=== PATIENT | male | born 1960 | race Caucasian/White ===

== ENCOUNTER 2016-06-24 15:22 | Emergency (ER) | payer OTHER | END 2016-06-24 18:22 | disposition home or self-care (01) | DX: S39.92XA Unspecified injury of lower back, initial encounter (principal); W01.0XXA Fall on same level from slipping, tripping and stumbling without subsequent striking against object, initial encounter; Y92.019 Unspecified place in single-family (private) house as the place of occurrence of the external cause; E78.00 Pure hypercholesterolemia, unspecified; G47.30 Sleep apnea, unspecified; G89.29 Other chronic pain; F17.200 Nicotine dependence, unspecified, uncomplicated ==

== ENCOUNTER 2016-06-24 18:18 | Outpatient (CLI) | payer OTHER | END 2016-06-24 18:19 | disposition home or self-care (01) | DX: Z51.81 Encounter for therapeutic drug level monitoring (principal) ==

== ENCOUNTER 2017-09-10 11:43 | Outpatient (CLI) | payer MEDICARE ==
[2017-09-10 17:39] LABS: BASOPHILS # (AUTO) 0.1 10^3/uL (0.0-0.1); BASOPHILS % (AUTO) 0.8 %; EOSINOPHILS # (AUTO) 0.4 10^3/uL (0.0-0.7); HGB - HEMOGLOBIN 15.2 g/dL (14.0-18.0); LYMPHOCYTES # (AUTO) 2.7 10^3/uL (1.5-3.5); LYMPHOCYTES % (AUTO) 33.5 %; MEAN CORPUSCULAR HEMOGLOBIN 29.9 pg (27.0-31.0); MEAN CORPUSCULAR HGB CONC 33.2 g/dL (32.0-36.0); MEAN CORPUSCULAR VOLUME 90.3 fL (80.0-94.0); MEAN PLATELET VOLUME 9.8 fL (7.4-11.4); MONOCYTES # (AUTO) 0.7 10^3/uL (0.0-1.0); MONOCYTES % (AUTO) 9.4 %; NEUTROPHILS # (AUTO) 4.1 10^3/uL (1.5-6.6); NEUTROPHILS % (AUTO) 51.3 %; PLT - PLATELET COUNT 285 10^3/uL (130-450); RED BLOOD COUNT 5.08 10^6/uL (4.70-6.10); RED CELL DISTRIBUTION WIDTH 13.1 % (12.0-15.0); WHITE BLOOD COUNT 7.9 x10^3/uL (4.8-10.8)
[2017-09-10 18:18] LABS: ALBUMIN 3.9 g/dL (3.2-5.5); ALBUMIN/GLOBULIN RATIO 1.2 (1.0-2.2); ALKALINE PHOSPHATASE 48 IU/L (42-121); ALT ALANINE AMINOTRANSFERASE 13 IU/L (10-60); AST ASPARTATE AMINOTRANSFERASE 18 IU/L (10-42); BILIRUBIN,TOTAL 1.1 mg/dL (0.2-1.0); BUN - BLOOD UREA NITROGEN 9 mg/dL (6-20); CALCIUM 9.3 mg/dL (8.5-10.3); CARBON DIOXIDE - CO2 25 mmol/L (21-32); CHLORIDE 106 mmol/L (101-111); CHOLESTEROL 192 mg/dL; CREATININE 0.9 mg/dL (0.6-1.2); GFR - MDRD 88 (>89); GLUCOSE 101 mg/dL (70-100); HDL CHOLESTEROL 32 mg/dL; LDL CHOLESTEROL,CALCULATED 102 mg/dL; LDL/HDL RATIO 3.2 (<3.6); SODIUM 137 mmol/L (135-145); TOTAL PROTEIN 7.2 g/dL (6.7-8.2); VLDL CHOLESTEROL 58 mg/dL
== END 2017-09-10 11:44 | disposition home or self-care (01) ==
LOC: LAB.F 11:43
PROVIDERS: ATTEND Physician Assistant Medical
DX: Z00.00 Encounter for general adult medical examination without abnormal findings (principal); Z79.899 Other long term (current) drug therapy; E55.9 Vitamin D deficiency, unspecified
CPT/HCPCS: 36415; 80053; 80061; 82306; 83721; 85025

== ENCOUNTER 2017-10-22 08:00 | Outpatient (CLI) | payer MEDICARE | END 2017-10-22 08:01 | disposition home or self-care (01) | LOC: LAB.F 08:00 | PROVIDERS: ATTEND Physician Assistant Medical | DX: Z12.5 Encounter for screening for malignant neoplasm of prostate (principal) | CPT/HCPCS: 36415; G0103; 84153 ==

== ENCOUNTER 2018-04-09 13:26 | Emergency (ER) | payer MEDICARE ==
[2018-04-09] MEDS ORDERED: ALPRAZolam 0.25 MG TABLET PO STA (15:13)
--- NOTE | 2018-04-09 15:28 | ED Physician Documentation ---
PD HPI MHE - Stated complaint Stated Complaint: MED REFILL/PANIC ATTACK - Chief complaint Chief Complaint: Resp - History obtained from History obtained from: Patient - History of Present Illness Primary symptom: Anxiety, Out of meds, Other (insomnia, also increased abd cramping from IBS which occurs with stress in the past.) Timing - onset: How many weeks ago (had run out of Xanax couple weeks ago, and has appt with new PCP in [place] next week, but anxiety increasing and he would like Rx to bridge until he can see new provider. He quit prior provider.) Contributing factors: Out of meds. No: Substance abuse - ETOH, Substance abuse - drugs Similar symptoms before: Diagnosis (anxiety and depression) Recently seen: Not recently seen Review of Systems Constitutional: reports: Chills. denies: Fever Nose: denies: Rhinorrhea / runny nose, Congestion Throat: denies: Sore throat Respiratory: denies: Cough GI: denies: Nausea, Vomiting, Diarrhea Skin: reports: Rash (facial rash forehead and cheeks, recurrent for over 4 years without clear Dx in the past, per patient.) PD PAST MEDICAL HISTORY - Past Medical History Cardiovascular: High cholesterol Respiratory: Sleep apnea, CPAP use Psych: Depression, Anxiety, ADD/ADHD Musculoskeletal: Chronic back pain - Past Surgical History Past Surgical History: Yes HEENT: Tonsil/Adenoidectomy - Present Medications Home Medications: Ambulatory Orders Medication Instructions Recorded Confirmed Cholecalciferol (Vitamin D3) 6,000 unit PO DAILY 04/04/13 02/17/15 [Vitamin D] EPINEPHrine [Epipen] 0.1 mg SQ 08/01/14 02/17/15 Minocycline HCl [Minocin] 50 mg PO DAILY #30 capsule 02/17/15 Alprazolam [Xanax] 1 mg PO BID #30 tablet 04/09/18 Metronidazole [Metrogel] 1 applic TP BID #1 tube 04/09/18 - Allergies Allergies/Adverse Reactions: Allergies Allergy/AdvReac Type Severity Reaction Status Date / Time amoxicillin [Amoxicillin] Allergy Rash Verified 12/03/12 16:47 amphetamine [From Adderall] Allergy Anxiety Verified 04/09/18 13:37 cefaclor [From Ceclor] Allergy joint pain Verified 12/03/12 16:47 clavulanic acid Allergy Edema Verified 04/09/18 13:37 [From Augmentin] cortisone [Cortisone] Allergy Rash Verified 12/03/12 16:47 cyclobenzaprine Allergy Cramps Verified 04/09/18 13:37 dextroamphetamine Allergy Anxiety Verified 04/09/18 13:37 [From Adderall] gluten Allergy gi Verified 04/04/13 19:53 guaifenesin Allergy Anxiety Verified 04/09/18 13:37 nortriptyline Allergy Rash Verified 04/09/18 13:37 omeprazole [From Prilosec] Allergy Anxiety Verified 04/09/18 13:37 peanut Allergy Cramps Verified 06/24/16 15:33 salicylates Allergy Unknown Verified 04/09/18 13:37 tadalafil Allergy Unknown Verified 04/09/18 13:37 verapamil Allergy Anxiety Verified 04/09/18 13:37 whey Allergy gi Uncoded 04/04/13 19:53 - Social History Does the pt smoke?: Yes Smoking Status: Current every day smoker Does the pt drink ETOH?: No Does the pt have substance abuse?: Yes - Immunizations Immunizations are current?: Yes Immunizations: TDAP current <10years - POLST Patient has POLST: No PD ED PE NORMAL - Vitals Vital signs reviewed: Yes - General General: Alert and oriented X 3, No acute distress, Well developed/nourished - Neck Neck: Supple, no meningeal sign, No adenopathy - Cardiac Cardiac: RRR, No murmur - Respiratory Respiratory: Clear bilaterally - Derm Derm: Normal color, Warm and dry, Other (forehead and cheeks with red blotchy rash without crusting nor weeping. Looks possibly rosacea.) - Psych Psych: Normal mood. No: Normal affect (somewhat anxious but pleasant and interacts well. ) Results - Vitals Vitals: Vital Signs - 24 hr 04/09/18 04/09/18 13:29 15:36 Temperature 36.8 C Heart Rate 108 H 86 Respiratory 22 14 Rate Blood Pressure 168/94 H 123/79 O2 Saturation 96 98 Oxygen O2 Source Room air PD MEDICAL DECISION MAKING - ED course Complexity details: considered differential (has anxiety and is out of meds, with appt with PCP in a week. new provider in [place], so he had not anticipated taking as long to get first appt and ran out of Xanax couple weeks ago and is very anxious. Also having some flare of IBS, which he says is likely from the anxiety. Also has facial rash flaring up that has been recurring for years and not gotten clear dx despite several dermatologists and having used multiple creams and abx. Does not recognize Metrogel as one he has had though. ), d/w patient Departure - Departure Disposition: 01 Home, Self Care Clinical Impression: Anxiety, Facial rash Condition: Stable Record reviewed to determine appropriate education?: Yes Instructions: Anxiety Disorder Prescriptions: Alprazolam [Xanax] 1 mg PO BID #30 tablet Metronidazole [Metrogel] 1 applic TP BID #1 tube Comments: Continue current medications. I did write short-term prescription for your Xanax into the can see your new primary care next week. For the facial rash you could try MetroGel in the interim to see if that improves on it. Recheck with your primary care next week. Return if needed. Discharge Date/Time: 04/09/18 15:38
[2018-04-09 15:38] VITALS: BP 123/79
== END 2018-04-09 15:38 | disposition home or self-care (01) ==
LOC: ED 13:26
DX: F41.9 Anxiety disorder, unspecified (principal); R21 Rash and other nonspecific skin eruption; Z76.0 Encounter for issue of repeat prescription; E78.00 Pure hypercholesterolemia, unspecified; F17.200 Nicotine dependence, unspecified, uncomplicated
CPT/HCPCS: 99283; A9270

== ENCOUNTER 2019-08-10 09:32 | Emergency (ER) | payer OTHER, MEDICARE ==
[2019-08-10 09:48] VITALS: BP 118/88
--- NOTE | 2019-08-10 10:15 | ED Physician Documentation ---
PD HPI MALE - Stated complaint Stated Complaint: MALE - Chief complaint Chief Complaint: Wound - History obtained from History obtained from: Patient - History of Present Illness Timing - onset: How many days ago (6) Timing - duration: Days (6) Timing - details: Gradual onset, Still present Associated symptoms: Other (lump in the rectum is very painful much better today than yesterday .) Similar symptoms before: Has not had sx before Recently seen: Not recently seen - Additional information Additional information: 58-year-old male who is had some problem with psoriatic arthritis has developed a painful lump in his rectum that was severe and he is finally made it to the emergency department. He states that if he were to have come yesterday he would have had to of laid prone in the car seat in order to get to the emergency department. Today he is able to stand and walk. He noticed this lump and pain 6 days ago he has been putting some cortisone cream on it. He also notes some redness to his perineum but seems to be worse if he eats too much salt. He also has some urinary hesitancy and poor stream that is slowly worsening. Review of Systems Constitutional: denies: Fever Eyes: denies: Decreased vision Ears: denies: Ear pain Nose: denies: Congestion Respiratory: denies: Cough GI: reports: Other (lump in rectum). denies: Vomiting PD PAST MEDICAL HISTORY - Past Medical History Cardiovascular: High cholesterol Respiratory: Sleep apnea, CPAP use Psych: Depression, Anxiety, ADD/ADHD Musculoskeletal: Chronic back pain - Past Surgical History Past Surgical History: Yes HEENT: Tonsil/Adenoidectomy - Present Medications Home Medications: Ambulatory Orders Medication Instructions Recorded Confirmed Cholecalciferol (Vitamin D3) 6,000 unit PO DAILY 04/04/13 02/17/15 [Vitamin D] EPINEPHrine [Epipen] 0.1 mg SQ 08/01/14 02/17/15 Minocycline HCl [Minocin] 50 mg PO DAILY #30 capsule 02/17/15 Alprazolam [Xanax] 1 mg PO BID #30 tablet 04/09/18 Metronidazole [Metrogel] 1 applic TP BID #1 tube 04/09/18 Fluconazole [Diflucan] 150 mg PO ONCE #2 tablet 08/10/19 - Allergies Allergies/Adverse Reactions: Allergies Allergy/AdvReac Type Severity Reaction Status Date / Time amoxicillin [Amoxicillin] Allergy Rash Verified 12/03/12 16:47 amphetamine [From Adderall] Allergy Anxiety Verified 04/09/18 13:37 cefaclor [From Ceclor] Allergy joint pain Verified 12/03/12 16:47 clavulanic acid Allergy Edema Verified 04/09/18 13:37 [From Augmentin] cyclobenzaprine Allergy Cramps Verified 04/09/18 13:37 dextroamphetamine Allergy Anxiety Verified 04/09/18 13:37 [From Adderall] gluten Allergy gi Verified 04/04/13 19:53 guaifenesin Allergy Anxiety Verified 04/09/18 13:37 nortriptyline Allergy Rash Verified 04/09/18 13:37 omeprazole [From Prilosec] Allergy Anxiety Verified 04/09/18 13:37 salicylates Allergy Unknown Verified 04/09/18 13:37 verapamil Allergy Anxiety Verified 04/09/18 13:37 whey Allergy gi Uncoded 04/04/13 19:53 - Social History Does the pt smoke?: Yes Smoking Status: Current every day smoker Does the pt drink ETOH?: No Does the pt have substance abuse?: Yes - Immunizations Immunizations are current?: Yes Immunizations: TDAP current <10years - POLST Patient has POLST: No PD ED PE NORMAL - Vitals Vital signs reviewed: Yes (hypertensive mild ) - General General: Alert and oriented X 3, No acute distress, Well developed/nourished - HEENT HEENT: Atraumatic, PERRL, EOMI, Ears normal - Neck Neck: Supple, no meningeal sign, No bony TTP - Male Male : Other (There is mild erythema to the skin of the thighs bilaterally along the intertriginous fold.) - Back Back: No CVA TTP, No spinal TTP, Other (There is a thrombosed hemorrhoid at 6 o'clock. This is tender and firm, mature. ) - Derm Derm: Normal color, Warm and dry, No rash - Extremities Extremities: No deformity, No edema Results - Vitals Vitals: Vital Signs - 24 hr 08/10/19 09:45 Temperature 36.8 C Heart Rate 82 Respiratory 18 Rate Blood Pressure 118/88 H O2 Saturation 98 Oxygen O2 Source Room air PD MEDICAL DECISION MAKING - ED course Complexity details: reviewed old records, considered differential, d/w patient ED course: 58-year-old male with a thrombosed external hemorrhoid has past the 72-hour stephanie and no specific therapy is provided in the emergency department. I have explained to the patient the natural history of thrombosed hemorrhoid with the expectation that his pain subsides over the next several days and the mass remains slowly resolving. I have encouraged him to continue use the cortisone cream and we will give him some Diflucan for what seems to be some yeast dermatitis. He is also having some complaints of a decreased urinary stream and I have referred him to the urologist for further evaluation. Departure - Departure Disposition: Home, Self Care Clinical Impression: Thrombosed external hemorrhoid, Yeast dermatitis Condition: Stable Instructions: Hemorrhoids Thrombosed, ED Candidiasis Cutaneous Follow-Up: FEROZ CHAMPION MD [Primary Care Provider] - Abel Soto MD [Provider Admit Priv/Credential] - Prescriptions: Fluconazole [Diflucan] 150 mg PO ONCE #2 tablet
== END 2019-08-10 10:34 | disposition home or self-care (01) ==
LOC: ED 09:32
DX: K64.5 Perianal venous thrombosis (principal); B37.2 Candidiasis of skin and nail; R39.198 Other difficulties with micturition; R39.11 Hesitancy of micturition; L40.50 Arthropathic psoriasis, unspecified; F17.200 Nicotine dependence, unspecified, uncomplicated
CPT/HCPCS: 99282; 99284

== ENCOUNTER 2022-10-24 07:00 | Outpatient (CLI) | payer MEDICARE ==
--- NOTE | 2022-10-25 13:20 | XRAY Report ---
PROCEDURE: Chest 2 View X-Ray INDICATIONS: HEMOPTYSIS TECHNIQUE: 2 views of the chest were acquired. COMPARISON: None. FINDINGS: Surgical changes and devices: None. Lungs and pleura: No pleural effusions or pneumothorax. Lungs are clear. Mediastinum: Mediastinal contours appear normal. Heart size is normal. Bones and chest wall: No suspicious bony lesions. Overlying soft tissues appear unremarkable. IMPRESSION: No acute cardiopulmonary process. Reviewed by: Frank Chew on 10/25/2022 1:19 PM PDT Approved by: Frank Chew on 10/25/2022 1:19 PM PDT Station ID: [id number]
== END 2022-10-24 23:59 | disposition home or self-care (01) ==
LOC: DI.S 07:00
PROVIDERS: ATTEND Emergency Medicine
DX: R04.2 Hemoptysis (principal)

== ENCOUNTER 2022-10-24 08:00 | Outpatient (CLI) | payer MEDICARE | END 2022-10-24 23:59 | disposition home or self-care (01) | LOC: LAB.S 08:00 | PROVIDERS: ATTEND Emergency Medicine | DX: J02.8 Acute pharyngitis due to other specified organisms (principal) ==

== ENCOUNTER 2022-10-30 08:00 | Outpatient (CLI) | payer MEDICARE ==
--- NOTE | 2022-10-31 16:13 | XRAY Report ---
PROCEDURE: Ribs w/PA Chest LT INDICATIONS: RIB PAIN, LEFT TECHNIQUE: 2 views of the left ribs were acquired, along with a single view chest. COMPARISON: None. FINDINGS: Surgical changes and devices: None. Bones and chest wall: No fractures or dislocations. No suspicious bony lesions. Overlying soft tis sues appear unremarkable. Lungs and pleura: No pleural effusions or pneumothorax. Lungs appear clear. Mediastinum: Mediastinal contours appear normal. Heart size is normal. IMPRESSION: No displaced rib fracture or pneumothorax. Reviewed by: Frank Chew on 10/31/2022 4:11 PM PDT Approved by: Frank Chew on 10/31/2022 4:11 PM PDT Station ID: [id number]
== END 2022-10-30 23:59 | disposition home or self-care (01) ==
LOC: DI.S 08:00
PROVIDERS: ATTEND Nurse Practitioner
DX: R07.81 Pleurodynia (principal)

== ENCOUNTER 2023-08-04 13:09 | Outpatient (CLI) | payer MEDICARE ==
--- NOTE | 2023-08-04 14:33 | XRAY Report ---
PROCEDURE: Hand 3+V LT INDICATIONS: SUBUNGUAL HEMATOMA TECHNIQUE: 3 views of the hand(s) acquired. COMPARISON: None. FINDINGS: Bones: No fractures or dislocations. No suspicious bony lesions. Soft tissues: No suspicious soft tissue calcifications or masses. IMPRESSION: No acute bony abnormality. If pain persists with conservative management, consider repeat radiographs in 10-14 days to evaluate for occult fracture. Reviewed by: Jossy López MD on 08/04/2023 2:32 PM PDT Approved by: Jossy López MD on 08/04/2023 2:32 PM PDT Station ID: [id number]
== END 2023-08-04 13:10 | disposition home or self-care (01) ==
LOC: DI.S 13:09
PROVIDERS: ATTEND Registered Nurse
DX: S67.191A Crushing injury of left index finger, initial encounter (principal); L60.8 Other nail disorders